=== PATIENT | female | born 1990 | race Two or more races ===

== ENCOUNTER 2016-06-11 23:46 | Emergency (ER) | payer MEDICAID ==
[~2016-06-11] VITALS: Ht 154.9 cm; Wt 62.6 kg
--- NOTE | 2016-06-12 02:23 | NUR ---
PT REFUSED, ORTHO BOOT, RISK AND BENEFITS EXPLAINED X3. PT STRONGLY REFUSED. HEEL LAYER DAYANII AWARE.
== END 2016-06-12 02:24 | disposition home or self-care (01) ==
LOC: ER 23:46
DX: S90.121A Contusion of right lesser toe(s) without damage to nail, initial encounter (principal); X58.XXXA Exposure to other specified factors, initial encounter; Y92.89 Other specified places as the place of occurrence of the external cause; Y93.89 Activity, other specified; Y99.8 Other external cause status
CPT/HCPCS: 73660-TC; A4606

== ENCOUNTER 2018-07-17 00:34 | Emergency (ER) | payer MEDICAID, OTHER ==
[~2018-07-17] VITALS: Ht 152.4 cm; Wt 66.2 kg
[2018-07-17 00:45] VITALS: BP 117/74
== END 2018-07-17 01:08 | disposition home or self-care (01) ==
LOC: ER 00:35
DX: L03.011 Cellulitis of right finger (principal)

== ENCOUNTER 2018-11-14 00:43 | Emergency (ER) | payer OTHER ==
[~2018-11-14] VITALS: Ht 152.4 cm; Wt 63.5 kg
--- NOTE | 2018-11-14 01:07 | NUR ---
BIB FAMILY WITH C/O DYSURIA X 1 DAY. PT ALSO REPORTED LOWER ABD PAIN AND CRAMP. CURRENLY ON HER MENSRUAL PERIOD. PT ENDORSED RECENT URI AND FINISHED HER LAST DOSE OF Z. PACK 3 DAYS AGO. AFEBRILE AT THIS TIME
[2018-11-14 01:18] LABS: APPEARANCE,URINE Turbid (CLEAR); BILIRUBIN,URINE LARGE (NEGATIVE); BLOOD, URINE Moderate Ery/uL (NEGATIVE); COLOR,URINE Other (YELLOW); KETONES,URINE 15 (NEGATIVE); LEUKOCYTE ESTERASE ,URINE Large (NEGATIVE); NITRITE, URINE Positive (NEGATIVE); PROTEIN,URINE >=300 mg/dl (NEGATIVE); UGLUCOSE 250 MG/DL mg/dL (NEGATIVE); UROBILINOGEN,URINE >=8.0 EU/dL (0.2)
[2018-11-14 01:28] LABS: BACTERIA,URINE Few /HPF (None Seen); RBC,URINE 51-80 /HPF (0-2); SQUAMOUS EPITHELIAL CELL,UR Few /HPF (None Seen); WBC,URINE 51-80 /HPF (0-3)
[2018-11-14] MEDS ORDERED: NITROFURANTOIN/NITROFURAN MAC 100 MG CAPSULE ONE (01:51)
[2018-11-14] MEDS ORDERED: PHENAZOPYRIDINE HCL 200 MG TABLET ONE (01:52)
--- NOTE | 2018-11-14 01:58 | NUR ---
Patient discharged to home in stable condition. RX AND Written and verbal after care instructions given. Patient verbalizes understanding of instruction.
[2018-11-14 01:59] VITALS: BP 105/66
[2018-11-14] MEDS ORDERED: NITROFURANTOIN/NITROFURAN MAC 100 MG CAPSULE PO ONE (02:00)
[2018-11-14] MEDS ORDERED: PHENAZOPYRIDINE HCL 200 MG TABLET PO ONE (02:00)
== END 2018-11-14 02:00 | disposition home or self-care (01) ==
LOC: ER 00:43
DX: N30.90 Cystitis, unspecified without hematuria (principal); J45.909 Unspecified asthma, uncomplicated; F17.200 Nicotine dependence, unspecified, uncomplicated
CPT/HCPCS: 81000-TC; 82962-TC; 84703-TC; 87086-TC

== ENCOUNTER 2019-03-31 23:46 | Emergency (ER) | payer OTHER ==
[~2019-03-31] VITALS: Ht 152.4 cm; Wt 59.9 kg
[2019-03-31 23:46] VITALS: BP 123/73
[2019-04-01] MEDS ORDERED: LORAZEPAM 1 MG TABLET ONE (00:14)
--- NOTE | 2019-04-01 00:18 | NUR ---
[facility]
[2019-04-01] MEDS ORDERED: LORAZEPAM 1 MG TABLET PO ONE (00:30)
== END 2019-04-01 00:19 | disposition home or self-care (01) ==
LOC: ER 23:52
DX: F41.9 Anxiety disorder, unspecified (principal); F45.8 Other somatoform disorders; J45.909 Unspecified asthma, uncomplicated; F17.200 Nicotine dependence, unspecified, uncomplicated

== ENCOUNTER 2019-07-26 00:48 | Emergency (ER) | payer OTHER ==
[~2019-07-26] VITALS: Ht 152.4 cm; Wt 59.9 kg
[2019-07-26 00:55] VITALS: BP 126/75
[2019-07-26] MEDS ORDERED: CEPHALEXIN MONOHYDRATE 500 MG CAPSULE PO ONE ×2 (01:00→01:03)
[2019-07-26] MEDS ORDERED: IBUPROFEN 600 MG TABLET PO ONE ×2 (01:00→01:04)
== END 2019-07-26 01:07 | disposition home or self-care (01) ==
LOC: ER 00:48
DX: N39.0 Urinary tract infection, site not specified (principal); J45.909 Unspecified asthma, uncomplicated; F41.9 Anxiety disorder, unspecified; F17.200 Nicotine dependence, unspecified, uncomplicated
CPT/HCPCS: 87086-TC; 87186-TC